=== PATIENT | male | born 1985 | race Caucasian/White ===

== ENCOUNTER 2018-06-05 10:13 | Emergency (ER) | payer SELFPAY ==
[2018-06-05] MEDS ORDERED: Lidocaine 5% Oint 35.44 GM Tube TOP ONE (10:45)
--- NOTE | 2018-06-05 10:50 | EDM.PDOC ---
ED HPI GENERAL MEDICAL PROBLEM - General Chief Complaint: Gastrointestinal Problem Stated Complaint: REACTAL PROBLEMS Time Seen by Provider: 06/05/18 10:17 Source of Information: Reports: Patient History Limitations: Reports: No Limitations - History of Present Illness INITIAL COMMENTS - FREE TEXT/NARRATIVE: Edward Nielsen is a 33 y/o male with history of Hep C who presents today to the ED accompanied by his . Patient states that this morning he started having rectal pain whe he went to the bathroom. He describes the pain as stabbing, rated 10/10. Has not happened before. He does have a history of hemorrhoids but no recent flare-ups. He states that we was riding his motorcycle this weekend. No blood in stool. No melena. No history of genitourinary procedures. He does endorse some dysuria. No fevers. Has not tried any over the counter medications for pain. No history of kidney stones or IBD. rectal area Pain Score (Numeric/FACES): 10 - Related Data Allergies Allergy/AdvReac Type Severity Reaction Status Date / Time contact metal agent Allergy Rash Verified 06/05/18 10:23 Home Meds: Home Meds Hydrocortisone Acetate 30 mg RC BID PRN #1 supp.rect 06/05/18 [Rx] Lidocaine 2% [Xylocaine 2% Jelly] 30 ml RECTAL BID PRN #1 tube 06/05/18 [Rx] Past Medical History Cardiovascular History: Reports: None Respiratory History: Reports: None Gastrointestinal History: Reports: None Genitourinary History: Reports: None Musculoskeletal History: Reports: None Neurological History: Reports: None Psychiatric History: Reports: None Endocrine/Metabolic History: Reports: None Hematologic History: Reports: None Immunologic History: Reports: None Oncologic (Cancer) History: Reports: None Dermatologic History: Reports: None - Infectious Disease History Infectious Disease History: Reports: Hepatitis C - Past Surgical History Head Surgeries/Procedures: Reports: None Cardiovascular Surgical History: Reports: None Respiratory Surgical History: Reports: None GI Surgical History: Reports: None Male Surgical History: Reports: None Endocrine Surgical History: Reports: None Neurological Surgical History: Reports: None Musculoskeletal Surgical History: Reports: None Dermatological Surgical History: Reports: None Social & Family History - Family History Family Medical History: Noncontributory - Tobacco Use Smoking Status *Q: Current Every Day Smoker Years of Tobacco use: 20 Packs/Tins Daily: 1 Second Hand Smoke Exposure: Yes - Caffeine Use Caffeine Use: Reports: Coffee, Energy Drinks, Soda - Recreational Drug Use Recreational Drug Use: Yes Recreational Drug Type: Reports: Cocaine, Marijuana/Hashish, Methamphetamine, Other (see below) Other Recreational Drug Type: "pills" Recreational Drug Use Frequency: Weekly ED ROS GENERAL - Review of Systems Review Of Systems: See Below Constitutional: Reports: No Symptoms HEENT: Reports: No Symptoms Respiratory: Reports: No Symptoms Cardiovascular: Reports: No Symptoms Endocrine: Reports: No Symptoms GI/Abdominal: Reports: Other (rectal pain). Denies: Abdominal Pain, Bloody Stool, Constipation, Diarrhea, Melena, Mucous in Stool : Reports: Dysuria. Denies: Discharge Musculoskeletal: Reports: No Symptoms Skin: Reports: No Symptoms Neurological: Reports: No Symptoms Psychiatric: Reports: No Symptoms Hematologic/Lymphatic: Reports: No Symptoms Immunologic: Reports: No Symptoms ED EXAM, GI/ABD - Physical Exam Exam: See Below Exam Limited By: No Limitations General Appearance: Alert, WD/WN, No Apparent Distress Head: Atraumatic, Normocephalic Respiratory/Chest: No Respiratory Distress, Lungs Clear, Normal Breath Sounds, No Accessory Muscle Use, Chest Non-Tender Cardiovascular: Normal Peripheral Pulses, Regular Rate, Rhythm, No Edema, No Gallop, No JVD, No Murmur, No Rub GI/Abdominal Exam: Normal Bowel Sounds, Soft, Non-Tender, No Organomegaly, No Distention, No Abnormal Bruit, No Mass, Pelvis Stable (Male) Exam: Normal Inspection, Normal Prostate, Other (No anal fissures. No external hemorrhoids observed. Rectal exams positive for internal hemorrhoids. Positive Guaic.). No: Penile Lesions, Rash, Scrotal Swelling, Testicular Mass, Testicular Tenderness (L), Testicular Tenderness (R) Rectal (Males) Exam: Heme + Stool, Hemorrhoids, Tenderness. No: Black Stool, Perirectal Abscess, Rectal Fissure Back Exam: Normal Inspection, Full Range of Motion, NT Extremities: Normal Inspection, Normal Range of Motion, Non-Tender, Normal Capillary Refill, No Pedal Edema Skin Exam: Warm, Dry, Intact, Normal Color, No Rash Course - Vital Signs Last Recorded V/S: Last Vital Signs Temp 36.1 C 06/05/18 10:23 Pulse 81 06/05/18 10:23 Resp 20 08/13/18 10:23 BP 118/60 06/05/18 10:23 Pulse Ox 98 06/05/18 10:23 - Orders/Labs/Meds Orders: Active Orders 24 hr Category Date Time Status CHLAMYDIA AND GONORRHEA BY [facility] Stat Lab 06/05/18 11:00 Received PSA DIAGNOSTIC [CHEM] Stat Lab 06/05/18 10:48 Received URINALYSIS W/MICROSCOPIC [UA W/MICROSCOPIC] [URIN] Stat Lab 06/05/18 11:00 Ordered Labs: Laboratory Tests 06/05/18 06/05/18 Range/Units 10:48 11:00 WBC 8.20 (4.0-11.0) K/uL RBC 5.03 (4.50-5.90) M/uL Hgb 15.0 (13.0-17.0) g/dL Hct 44.1 (38.0-50.0) % MCV 87.7 (80.0-98.0) fL MCH 29.8 (27.0-32.0) pg MCHC 34.0 (31.0-37.0) g/dL RDW Std Deviation 43.3 (28.0-62.0) fl RDW Coeff of Andrew 14 (11.0-15.0) % Plt Count 239 (150-400) K/uL MPV 10.90 (7.40-12.00) fL Neut % (Auto) 65.6 (48.0-80.0) % Lymph % (Auto) 16.6 (16.0-40.0) % Vermilion % (Auto) 8.9 (0.0-15.0) % Eos % (Auto) 8.5 H (0.0-7.0) % Baso % (Auto) 0.4 (0.0-1.5) % Neut # (Auto) 5.4 (1.4-5.7) K/uL Lymph # (Auto) 1.4 (0.6-2.4) K/uL Vermilion # (Auto) 0.7 (0.0-0.8) K/uL Eos # (Auto) 0.7 (0.0-0.7) K/uL Baso # (Auto) 0.0 (0.0-0.1) K/uL Nucleated RBC % 0.0 /100WBC Nucleated RBCs # 0 K/uL Urine Color YELLOW Urine Appearance CLEAR Urine pH 6.0 (5.0-8.0) Ur Specific Lehr >= 1.030 (1.001-1.035) Urine Protein NEGATIVE (NEGATIVE) mg/dL Urine Glucose (UA) NEGATIVE (NEGATIVE) mg/dL Urine Ketones NEGATIVE (NEGATIVE) mg/dL Urine Occult Blood NEGATIVE (NEGATIVE) Urine Nitrite NEGATIVE (NEGATIVE) Urine Bilirubin NEGATIVE (NEGATIVE) Urine Urobilinogen 2.0 H (<2.0) EU/dL Ur Leukocyte Esterase NEGATIVE (NEGATIVE) Meds: Medications Discontinued Medications Generic Name Dose Route Start Last Admin Trade Name Freq PRN Reason Stop Dose Admin Hydrocortisone 1 gm 06/05/18 10:45 06/05/18 11:18 Hydrocortisone 2.5% [facility] 06/05/18 10:46 1 gm ONETIME ONE Administration Lidocaine HCl 1 gm 06/05/18 10:45 06/05/18 11:12 Lidocaine 5% [facility] 06/05/18 10:46 Not Given ONETIME ONE Lidocaine/Prilocaine 1 gm 06/05/18 11:04 06/05/18 11:17 [place] [facility] 06/05/18 11:05 1 gm ONETIME ONE Administration - Re-Assessments/Exams Free Text/Narrative Re-Assessment/Exam: 06/05/18 11:25 Perianal pain decreased, improved with the application of lidocaine and hydrocortisone cream. Departure - Departure Time of Disposition: 11:38 Disposition: Home, Self-Care 01 Condition: Good Clinical Impression: Internal hemorrhoids - Discharge Information *PRESCRIPTION DRUG MONITORING PROGRAM REVIEWED*: Not Applicable *COPY OF PRESCRIPTION DRUG MONITORING REPORT IN PATIENT NILDA: Not Applicable Instructions: Hemorrhoids, [id number], Nonsurgical Procedures for Hemorrhoids Referrals: PCP,None [Primary Care Provider] - Forms: ED Department Discharge Additional Instructions: Do Sitz baths twice a day. Apply medication as indicated. Follow-up with general surgery for internal hemorrhoids. Follow-up with Dr. Carney at [facility] in 1-2 weeks. - My Orders Last 24 Hours: My Active Orders 06/05/18 11:00 CHLAMYDIA AND GONORRHEA BY [facility] Stat URINALYSIS W/MICROSCOPIC [UA W/MICROSCOPIC] [URIN] Stat - Assessment/Plan Last 24 Hours: My Active Orders 06/05/18 11:00 CHLAMYDIA AND GONORRHEA BY [facility] Stat URINALYSIS W/MICROSCOPIC [UA W/MICROSCOPIC] [URIN] Stat
[2018-06-05] MEDS ORDERED: Lidocaine/Prilocaine 2.5-2.5% Crm 5 GM Kit TOP ONE (11:04)
[2018-06-05] MEDS: Hydrocortisone 2.5% Crm 30 GM Tube TOP ONE ×2 (11:11→11:18)
== END 2018-06-05 11:50 | disposition home or self-care (01) ==
LOC: MW.ED 10:13
DX: K64.8 Other hemorrhoids (principal); F17.210 Nicotine dependence, cigarettes, uncomplicated; Z91.018 Allergy to other foods
CPT/HCPCS: 36415; 81001; 84153; 85025; 87491; 87591; 99283; A9270